=== PATIENT | female | born 1990 | race Hispanic/Latino ===

== ENCOUNTER 2017-11-08 18:33 | Emergency (ER) | payer SELFPAY ==
[2017-11-08 19:51] LABS: Urine Bacteria 20-50 /HPF (<20); Urine Culture Reflex Order REFLEXED; Urine Mucus 1+ /HPF (NONE SEEN)
[2017-11-08 19:52] LABS: Urine Blood TRACE (NEG); Urine Glucose NEGATIVE (NEG); Urine Protein 1+ (NEG); Urine Specific Gravity 1.015 (1.005-1.030)
[2017-11-08 20:02] LABS: Absolute Monocytes 0.8 K/uL (0.1-1.3); Absolute Neutrophil 6.4 K/uL (1.8-8.0); Basophils % 0.3 % (0-1.3); Eosinophils % 0.4 % (0-4.4); Lymphocytes % 21.4 % (15.3-44.8); MCH 31.5 pg (27.0-35.0); MCV 91.3 fL (80-100); MPV 7.6 fL (7.6-11.3); Monocytes % 8.6 % (3.3-12.3); RBC Red Blood Cell Count 3.94 M/uL (3.86-4.86)
[2017-11-08] MEDS ORDERED: ACETAMINOPHEN 500 MG TAB ONE (20:20)
[2017-11-08 20:35] LABS: BUN Blood Urea Nitrogen 8 mg/dL (7-18); Bicarbonate 26 mmol/L (21-32); Glucose Level 90 mg/dL (74-106); HCG, Quantitative 27408 mIU/mL (1-3); Potassium 3.3 mmol/L (3.5-5.1); Sodium Level 139 mmol/L (136-145)
--- NOTE | 2017-11-08 21:34 | EDPHYS ---
Physician Documentation [facility] Name: Kristi Eddy Age: 27 yrs Sex: Female : 1990 Arrival Date: 11/08/2017 Time: 18:34 Bed 5 Private MD: None, None ED Physician Darwin Diaz HPI: 11/08 20:35 This 27 yrs old Female presents to ER via Ambulatory with complaints of kb Abdominal Pain. 20:35 The patient presents to the emergency department with abdominal pain, of the right kb lower quadrant and left lower quadrant, that started 7 day(s) ago, described as constant. course: care: none, Leakage of Fluid: none appreciated, Ultrasound: the patient has not had an ultrasound, Risk/complications: no obvious risks or complications are appreciated. Previous pregnancies: in previous pregnancies patient has had. Associated signs and symptoms: Pertinent positives: abdominal pain, Pertinent negatives: chest pain, diarrhea, dysuria, fever, frequency, nausea, ruptured membranes, seizure, shortness of breath, vaginal bleeding, vaginal discharge, vomiting. The patient has not experienced similar symptoms in the past. The patient has not recently seen a physician. Pt reports she has had lower abd pain since , took a test today and it was positive. Reports she has had a mirena in place for 3 years, but does not check placement. 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 - Social history:: Smoking status: Patient/guardian denies using tobacco. - Ebola Screening: : Patient denies travel to an Ebola-affected area in the 21 days before illness onset. ROS: 20:27 Constitutional: Negative for fever, chills, and weight loss, Cardiovascular: Negative kb for chest pain, palpitations, and edema, Respiratory: Negative for shortness of breath, cough, wheezing, and pleuritic chest pain, Back: Negative for injury and pain, MS/Extremity: Negative for injury and deformity, Skin: Negative for injury, rash, and discoloration, Neuro: Negative for headache, weakness, numbness, tingling, and seizure. 20:27 Abdomen/GI: Positive for abdominal pain, Negative for nausea, vomiting, and diarrhea, constipation, abdominal cramps, abdominal distension, anorexia. Exam: 20:34 Constitutional: This is a well developed, well nourished patient who is awake, alert, kb and in no acute distress. Head/Face: Normocephalic, atraumatic. Chest/axilla: Normal chest wall appearance and motion. Nontender with no deformity. No lesions are appreciated. Cardiovascular: Regular rate and rhythm with a normal S1 and S2. No gallops, murmurs, or rubs. Normal PMI, no JVD. No pulse deficits. Respiratory: Lungs have equal breath sounds bilaterally, clear to auscultation and percussion. No rales, rhonchi or wheezes noted. No increased work of breathing, no retractions or nasal flaring. Abdomen/GI: Soft, non-tender, with normal bowel sounds. No distension or tympany. No guarding or rebound. No evidence of tenderness throughout. Back: No spinal tenderness. No costovertebral tenderness. Full range of motion. Skin: Warm, dry with normal turgor. Normal color with no rashes, no lesions, and no evidence of cellulitis. MS/ Extremity: Pulses equal, no cyanosis. Neurovascular intact. Full, normal range of motion. Neuro: Awake and alert, GCS 15, oriented to person, place, time, and situation. Cranial nerves II-XII grossly intact. Motor strength 5/5 in all extremities. Sensory grossly intact. Cerebellar exam normal. Normal gait. Vital Signs: 18:36 BP 123 / 76; Pulse 95; Resp 18; Temp 97.8(TE); Pulse Ox 100% on R/A; Weight 53.07 kg tw2 (R); Height 5 ft. 4 in. (162.56 cm); Pain 8/10; 19:16 BP 113 / 67; Pulse 95; Resp 16 S; Pulse Ox 100% on R/A; Pain 8/10; bb 21:02 BP 114 / 74; Pulse 76; Resp 16 S; Pulse Ox 100% on R/A; Pain 6/10; bb 18:36 Body Mass Index 20.08 (53.07 kg, 162.56 cm) tw2 MDM: 18:52 Patient medically screened. kb 20:27 Data reviewed: vital signs, nurses notes. Data interpreted: Pulse oximetry: on room air kb is 100 %. Interpretation: normal. 21:33 Counseling: I had a detailed discussion with the patient and/or guardian regarding: the kb historical points, exam findings, and any diagnostic results supporting the discharge/admit diagnosis, lab results, radiology results, the need for outpatient follow up, an OB/Gyne specialist, to return to the emergency department if symptoms worsen or persist or if there are any questions or concerns that arise at home. 11/08 18:58 Order name: Quantitative Hcg; Complete Time: 20:38 kb 11/08 18:58 Order name: Abo/rh Typing; Complete Time: 20:38 kb 11/08 18:58 Order name: Basic Metabolic Panel; Complete Time: 20:38 kb 11/08 18:58 Order name: CBC with Diff; Complete Time: 20:04 kb 11/08 19:17 Order name: Urine Microscopic Only; Complete Time: 19:52 mt 11/08 19:47 Order name: Urine Dipstick--Ancillary (enter results); Complete Time: 19:53 mt 11/08 18:58 Order name: Urine Test (obtain specimen); Complete Time: 19:29 kb 11/08 18:58 Order name: IV Saline Lock; Complete Time: 19:47 kb 11/08 18:58 Order name: Labs collected and sent; Complete Time: 19:47 kb 11/08 18:58 Order name: NPO; Complete Time: 19:20 kb 11/08 19:47 Order name: Urine --Ancillary (enter results); Complete Time: 19:53 mt 11/08 19:52 Order name: Urine Culture EDMS 11/08 20:39 Order name: US Transvaginal Ob kb 11/08 18:58 Order name: Urine Dipstick-Ancillary (obtain specimen); Complete Time: 19:20 kb Administered Medications: 20:12 Drug: Tylenol 1000 mg Route: PO; bb 21:02 Follow up: Response: Pain is decreased bb Disposition: 11/09 07:11 Co-signature as Attending Physician, Darwin Diaz MD. rn Disposition: 11/08/17 21:33 Discharged to Home. Impression: Less than 8 weeks gestation of . - Condition is Stable. - Discharge Instructions: First Trimester of , [id number]. - Medication Reconciliation Form, Thank You Letter, Antibiotic Education, Prescription Opioid Use form. - Follow up: Emergency Department; When: As needed; Reason: Worsening of condition. Follow up: Private Physician; When: 2 - 3 days; Reason: Recheck today's complaints, Continuance of care, Re-evaluation by your physician. Signatures: Dispatcher [employer] EDSonam Dias FNP-Tramaine SPRAGUE-Kat Ramirez, RN RN bb Darwin Diaz MD MD rn Cristal Gautam RN RN tw2 Corrections: (The following items were deleted from the chart) 11/08 21:46 21:33 11/08/2017 21:33 Discharged to Home. Impression: Less than 8 weeks gestation of bb . Condition is Stable. Forms are Medication Reconciliation Form, Thank You Letter, Antibiotic Education, Prescription Opioid Use. Follow up: Emergency Department; When: As needed; Reason: Worsening of condition. Follow up: Private Physician; When: 2 - 3 days; Reason: Recheck today's complaints, Continuance of care, Re-evaluation by your physician. kb
--- NOTE | 2017-11-08 21:34 | ER ---
Nurse's Notes [facility] Name: Krsiti Eddy Age: 27 yrs Sex: Female : 1990 Arrival Date: 11/08/2017 Time: 18:34 Bed 5 Private MD: None, None Diagnosis: Less than 8 weeks gestation of Presentation: 11/08 18:35 Presenting complaint: Patient states: i just barely found out i am by a home tw2 test, but i have the Merena implant, my period was due on the of this month but it didn't come, but i have been been having lower abdominal pain since last . Transition of care: patient was not received from another setting of care. Onset of symptoms was November 08, 2017. Risk Assessment: Do you want to hurt yourself or someone else? Patient reports no desire to harm self or others. Initial Sepsis Screen: Does the patient meet any 2 criteria? No. Patient's initial sepsis screen is negative. Does the patient have a suspected source of infection? No. Patient's initial sepsis screen is negative. Care prior to arrival: None. 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 - Social history:: Smoking status: Patient/guardian denies using tobacco. - Ebola Screening: : Patient denies travel to an Ebola-affected area in the 21 days before illness onset. Screenin:03 Abuse screen: Denies threats or abuse. Nutritional screening: No deficits noted. bb Tuberculosis screening: No symptoms or risk factors identified. Fall Risk None identified. Assessment: 19:16 General: Appears in no apparent distress. uncomfortable, slender, Behavior is calm, bb cooperative. Pain: Complains of pain in abdomen Pain radiates to back Pain currently is 8 out of 10 on a pain scale. Pain began last Is intermittent. Neuro: Level of Consciousness is awake, alert, obeys commands, Oriented to person, place, time, situation. Cardiovascular: No deficits noted. Respiratory: Respiratory effort is even, unlabored. GI: Abdomen is non-distended, Bowel sounds present X 4 quads. Abd is soft X 4 quads Abdomen is tender to palpation in suprapubic area and right lower quadrant. : Denies vaginal bleeding. Derm: Skin is dry, Skin is normal, Skin temperature is warm. Musculoskeletal: Circulation, motion, and sensation intact. 21:01 Reassessment: Patient and/or family updated on plan of care and expected duration. Pain bb level reassessed. Patient is alert, oriented x 3, equal unlabored respirations, skin warm/dry/pink. pt states pain has improved a little now 6/10. 21:44 Reassessment: Patient is alert, oriented x 3, equal unlabored respirations, skin bb warm/dry/pink. pt verbalized understanding of and agrees to plan of care discharge instructions given pt ambulated with steady gait to exit accompanied by spouse. Vital Signs: 18:36 BP 123 / 76; Pulse 95; Resp 18; Temp 97.8(TE); Pulse Ox 100% on R/A; Weight 53.07 kg tw2 (R); Height 5 ft. 4 in. (162.56 cm); Pain 8/10; 19:16 BP 113 / 67; Pulse 95; Resp 16 S; Pulse Ox 100% on R/A; Pain 8/10; bb 21:02 BP 114 / 74; Pulse 76; Resp 16 S; Pulse Ox 100% on R/A; Pain 6/10; bb 18:36 Body Mass Index 20.08 (53.07 kg, 162.56 cm) tw2 ED Course: 18:34 Patient arrived in ED. sb2 18:34 None, None is Private Physician. sb2 18:36 Triage completed. tw2 18:37 Arm band placed on. tw2 18:52 Sonam Loyola FNP-C [facility]. kb 18:52 Darwin Diaz MD is Attending Physician. kb 19:16 Patient has correct armband on for positive identification. Placed in gown. Bed in low bb position. Call light in reach. Side rails up X 1. Adult w/ patient. Pulse ox on. NIBP on. 19:56 Kat Aviles, RN is Primary Nurse. bb 19:59 Inserted saline lock: 22 gauge in left antecubital area, using aseptic technique. Blood oe collected. 21:34 US Transvaginal Ob In Process Unspecified. EDMS 21:45 No provider procedures requiring assistance completed. IV discontinued, intact, bb bleeding controlled, No redness/swelling at site. Pressure dressing applied. Administered Medications: 20:12 Drug: Tylenol 1000 mg Route: PO; bb 21:02 Follow up: Response: Pain is decreased bb Outcome: 21:33 Discharge ordered by . kb 21:46 Discharged to home ambulatory, with family. bb 21:46 Condition: stable 21:46 Discharge instructions given to patient, Instructed on discharge instructions, follow up and referral plans. Demonstrated understanding of instructions, follow-up care. 21:46 Patient left the ED. bb Addendum: 11/11/2017 09:56 Addendum: Culture Results: Positive urine culture. Phone call Attempt #1 Not a working s s number Certified letter sent to listed address for patient. Signatures: Dispatcher [employer] EDMS Sonam Loyola, TRAINING TECHNICIAN-C TRAINING TECHNICIAN-Ckb Kat Aviles, RN RN bb Gladys Silva RN RN ss Wise, Tara, RN RN tw2 [place] Sheri sb2
--- NOTE | 2017-11-08 21:47 | RAD REPORT ---
EXAM DESCRIPTION: US - Transvaginal OB - 11/08/2017 9:34 pm CLINICAL HISTORY: with abdominal pain COMPARISON: None. FINDINGS: The uterus 6 x 4 x 5 centimeters. A gestational sac is present within the endometrium. Wi thin this is a yolk sac and pole with a crown-rump length 0.5 centimeters. Cardiac activity 117 beats per minute The ovaries are normal in size and echotexture. No significant free fluid is seen. An IUD is not visualized. IMPRESSION: Single live intrauterine with an estimated gestational age 6 weeks 2 days MERLE 07/02/2018
== END 2017-11-08 21:46 | disposition home or self-care (01) ==
LOC: ER 18:33
DX: R10.30 Lower abdominal pain, unspecified (principal)
CPT/HCPCS: 36415; 76817; 80048; 81003; 81015; 81025; 84702; 85025; 86900; 86901; 87077; 87086; 87088; 87186; 99284